=== PATIENT | male | born 1945 | race Caucasian/White ===

== ENCOUNTER → 2019-10-19 | Outpatient (CLI) | payer MEDICARE, SELFPAY ==
--- NOTE | 2019-10-19 12:32 | RAD_ITS ---
STUDY: X-RAY - LUMBAR SPINE REASON FOR EXAM: Male, 74 years old. LOW BACK AND LEFT HIP PAIN TECHNIQUE: 3 view(s) of the lumbar spine were obtained. COMPARISON: None FINDINGS: Normal lumbar lordosis. There is a mild dextroscoliosis of the lumbar spine. There is a normal alignment of the vertebrae in the lateral view. There is multilevel endplate spondylosis of the lumbar vertebrae. There is multi-level degenerative disc disease with multi-level disc space narrowing. There is no demonstrated fracture. There is atherosclerotic calcification of the abdominal aorta without a demonstrated aneurysm. RAD/Lumbar Spine 2 or 3 Views IMPRESSION: Degenerative changes of the spine, as detailed above. Electronically Signed: Joaquin Wade MD at 7:14 EST , Service support ,
--- NOTE | 2019-10-19 12:32 | RAD_ITS ---
STUDY: X-RAY - PELVIS AND LEFT HIP REASON FOR EXAM: Low back and left hip pain. TECHNIQUE: 2 views of the pelvis and hip. COMPARISON: None. FINDINGS: Normal visualized soft tissue structures. There is enthesopathy of the iliac wings bilaterally. Normal bilateral sacroiliac joints and visualized sacrum. Normal bilateral superior and inferior pubic rami. Normal pubic symphysis. Normal bilateral ischial tuberosities. Normal visualized femoral head. There are marginal osteophytes of the acetabulum, subchondral cystic change of the superior acetabulum and moderately severe joint space narrowing of the superior lateral left hip joint. RAD/HIP, UNI W/ Pelvis 2-3 Views IMPRESSION: Left hip arthrosis. Electronically Signed: Nate Newman MD at 14:50 EST Tel , Service support ,
== END | disposition home or self-care (01) ==
LOC: RAD 12:30
PROVIDERS: Referring Provider Anesthesiology Pain Medicine; Visit Provider Anesthesiology Pain Medicine
DX: M54.5 Low back pain (principal); M25.552 Pain in left hip
CPT/HCPCS: 72100; 73502

== ENCOUNTER → 2020-03-21 | Outpatient (CLI) | payer MEDICARE, SELFPAY ==
[2020-02-29 07:35] VITALS: BMI 33.0
[2020-03-21 10:42] VITALS: BMI 33.0
--- NOTE | 2020-03-21 11:12 | CT_ITS ---
STUDY: CT SCAN LOWER EXTREMITY LEFT REASON FOR EXAM: Male, 74 years old. RODLT HIP RADIATION DOSAGE (If Supplied By Facility): CTDIvol = ( 14.06 ) mGy, DLP = ( 810.82 ) mGycm. Individualized dose optimization techniques were used for this CT.? TECHNIQUE: Multiple axial tomographic images of the left hip and left knee were obtained. Coronal and sagittal reconstruction was obtained as well. COMPARISON: Comparison is made with prior radiograph of the left hip dated October 19, 2019. FINDINGS: Moderate degree of osteoarthritis of the left hip joint with subchondral cysts in the acetabular and femoral head components. There is also evidence of a lateral acetabular spur. Imaging of the knee joint is unremarkable. CT/Extremity Lower without Contra IMPRESSION: Moderate degree of osteoarthritis with joint space narrowing and subchondral geodes of the left hip. 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 Electronically Signed: Kwasi Kaiser, at 12:05 EDT , Service support ,
== END | disposition home or self-care (01) ==
LOC: CT 11:12
PROVIDERS: Referring Provider Orthopaedic Surgery; Visit Provider Orthopaedic Surgery
DX: M16.12 Unilateral primary osteoarthritis, left hip (principal)
CPT/HCPCS: 73700

== ENCOUNTER 2020-03-27 05:32 | Day surgery (SDC) | payer MEDICARE, SELFPAY ==
[2020-02-29 07:35] VITALS: BMI 33.0
--- NOTE | 2020-03-15 09:44 | EKG12_ITS ---
Test Reason : PREOP Blood Pressure : / mmHG Vent. Rate : 068 BPM Atrial Rate : 068 BPM P-R Int : 154 ms QRS Dur : 116 ms QT Int : 402 ms P-R-T Axes : 023 003 028 degrees QTc Int : 427 ms Normal sinus rhythm Normal ECG Confirmed by BASHIR STRONG ([id number]), department editor ANUJA MCBRIDE ([id number]) on 03/19/2020 2:11:47 PM Referred By: Jason Alejandro Confirmed By:BASHIR STRONG
[2020-03-15 10:28] LABS: Absolute Lymphocyte Count 1.26 X10^3/uL (0.83-4.51); Absolute Neutrophil Count 5.3 X10^3/uL (2.0-7.7); Basophil# 0.04 X10^3/uL; Basophil% 0.5 % (0-1); Eosinophils% 1.3 % (0-5); Hematocrit 41.1 % (40-54); Hemoglobin 13.8 g/dL (13.0-16.5); Lymphocyte # 1.26 X10^3/ul (4.0); Lymphocyte % 16.8 % (19-41); Mean Corp Hgb Conc 33.6 g/dL (32-36); Mean Corpuscular Hgb 33.7 pg (27.0-32.0); Mean Corpuscular Volume 100.2 fL (80-94); Mean Platelet Vol. 11.5 fl (6.2-12.0); Monocyte# 0.76 X10^3/uL; Monocyte% 10.1 % (0-10); NRBC Flagged by Analyzer 0 % (0-5); Neutrophil % 70.8 % (47-70); Platelet Count 238 K/mm3 (150-450); RBC Distribution Width CV 12.3 % (11.6-14.6); RBC Distribution Width SD 45.7 fl (35.1-43.9); White Blood Count 7.5 K/mm3 (4.4-11.0)
[2020-03-15 10:30] LABS: Prothrombin Time (Protime)PT. 12.6 SECONDS (11.7-14.9)
[2020-03-15 10:31] LABS: Partial Thromboplast Time 29.4 Seconds (24.1-36.2)
[2020-03-15 11:20] LABS: Anion Gap 7 (5-15); BUN 17 mg/dL (7-18); BUN/Creat Ratio 22.9 RATIO (10-20); Calcium,Total 8.7 mg/dL (8.5-10.1); Chloride 108 mmol/L (98-107); Creatinine, Serum 0.74 mg/dL (0.70-1.30); EST Glomerular Filtration Rate 110 mL/min (>60); Est Glom Filt Rate - Afr Amer 133 mL/min (>60); Glucose 109 mg/dL (74-106); Potassium 3.8 mmol/L (3.5-5.1); Sodium Level 142 mmol/L (136-145)
[2020-03-21 10:42] VITALS: BMI 33.0
[2020-03-27] VITALS (16 sets, daily range): BP systolic 105–166; BP diastolic 55–99; PULSE 66–88; RESP 16–18; TEMP 35.9–36.8; O2SAT 90–98; BMI 33.7
[2020-03-27 06:05] LABS: Bedside Glucose 153 mg/dL (70-110)
[2020-03-27] MEDS: Lactated Ringers 1,000 ML 100 ML IV ×2 (06:10→09:15)
[2020-03-27 06:26] LABS: Magnesium 2.3 mg/dL (1.6-2.6)
[2020-03-27] MEDS: Acetaminophen 500 MG Tablet 1000 MG PO ×3 (06:27→21:12)
[2020-03-27] MEDS: Scopolamine 1mg/72hr Patch 1 PATCH TRANSDERM. (06:27)
[2020-03-27] MEDS: Celecoxib 200 MG Capsule 400 MG PO (06:28)
[2020-03-27] MEDS: Gabapentin 600 MG Tablet PO (06:28)
--- NOTE | 2020-03-27 07:30 | HP.PCM_ITS ---
History and Physical Date of Admission: 03/27/20 Intake Intake Visit Reasons: LEFT HIP Is patient in pain?: Yes Allergies No Known Allergies Allergy (Unverified 03/09/20 10:08) [facility] Medical History (Updated 02/22/20 @ 08:56 by Cheryl Morin) Bladder cancer (Acute) Social History (Updated 03/21/20 @ 11:[address] Jason Alejandro DO) Smoking Status: Never smoker HPI LEFT HIP: Details: Parts of this documentation were recorded by a scribe, this documentation accurately reflects the service provided and the decisions made by me, Dr. Jason Alejandro DO 03/21/20 1035. LESTER BOBBY is a 74 year old M here today for left hip. Patient notes that he continues to have left hip pain. He has increased pain with ambulation. He has to limit his activities due to his pain. Patient has surgery scheduled for 03/27/20. He states that he was bit by a dog on his right hand about a month ago. He had no issues until a few weeks later. He was put onto an antibiotic which he has finished taking a few days ago. He has since gained full finger range of motion and his pain is resolved. He states that he did not have deep punctures they were more scratches. ROS Musc Reports joint pain, Reports limited joint movement, Denies numbness, Reports stiffness, Denies tingling Skin/Breast Reports system reviewed and no additional complaints, except as docu Neuro Yes system reviewed and no additional complaints, except as docu, No numbness, No tingling Ortho Exam Right Wrist/Hand Skin/Wound: Yes CDI, No Swelling, No Ecchymosis, Yes nail intact, Yes capillary refill normal WRIST: no signs of active infection. Superficial scratches that were present are completely healed there is no erythema or sign of active infection full finger range of motion nontender along flexor extensor tendons. Left Wrist/Hand Skin/Wound: No Swelling, No Ecchymosis Supplemental Info 10/19/2019 x-ray left hip: Moderate hip arthrosis with joint space narrowing subchondral cysts and spurringp 10/19/2019 x-ray lumbar spine:Dextroscoliosis multilevel degenerative disc disease Assessment & Plan Problems 1. Primary osteoarthritis of left hip M16.12 Plan Spoke with the patient that if he has any redness, increased pain, swelling or signs of infection develop in his hand, he should contact our office. Reviewed the pre-operative plans with the patient. Risks and benefits of the procedure were fully explained, including but not limited to infection, neurovascular injury, continued pain, arthritis, stiffness, need for further surgery, re-injury, DVT, PE, general risks of anesthesia, and loss of limb or life. The patient understands all the risks and does wish to proceed with written consent. Follow up for 2 week post op appt or sooner if pain, swelling, numbness or associated symptoms, or concerns develop. All questions answered. Patient in agreement of plan. Coding Level of Care Code Off vis,est,level 3 Diagnoses Primary osteoarthritis of left hip M16.12 ??Osteoarthritis type: primary I have re-examined the patient. There are no clinical changes since date of exam Procedure Criteria Procedure Type: Elective COVID Risk Discussion: The surgeon/proceduralist and patient have discussed in detail the risk of exposure to and/or potential harm posed by the COVID-19 virus with having a surgery/procedure at this time versus the risk of delaying the surgery/procedure. It is not possible to know either the risk of delaying the surgery or procedure or chance of getting an infection with perfect accuracy, but a joint decision was made between the patient and the surgeon/proceduralist to proceed at this time with the scheduled surgery/procedure as indicated on the consent form.
[2020-03-27] MEDS: dexAMETHasone 10 MG/ML Vial IV (07:50)
--- NOTE | 2020-03-27 09:51 | RAD_ITS ---
STUDY: X-RAY - PELVIS AND LEFT HIP REASON FOR EXAM: Male, 74 years old. POST OP HIP REPLACEMENT TECHNIQUE: 2 views of the pelvis and hip. COMPARISON: Comparison is made with prior study dated October 19, 2019. FINDINGS: The patient is status post left hip replacement. There is good alignment. Postoperative soft tissue changes. RAD/Hip Min 2 Views (Portable) IMPRESSION: Status post left hip replacement. There is good alignment. Electronically Signed: Kwasi Kaiser, at 13:06 EDT , Service support ,
--- NOTE | 2020-03-27 09:55 | PCM.OPRPT ---
Report of Operation Date of Procedure: 03/27/20 Description of Surgical Findings:: Preoperative diagnosis: Left hip DJD Postoperative diagnosis: Same Procedure: CT-guided Makoplasty assisted left total hip arthroplasty Implants: Tanner Accolade II stem size 6, 127 degree neck angle 0 neck length 56 mm Trident II acetabular shell with 30 and mm cancellous screw MDM head Anesthesia: General EBL: 175 cc Complications: None Condition: Stable to PACU Indication for procedure: This is a 74-year-old male who has had long-standing arthrosis of the hip who has failed conservative treatment and wished to undergo total hip arthroplasty. He does have lumbar arthrosis with a very stiff lumbar spine therefore elected to proceed with MDM for stability ,we did discuss operative versus nonoperative intervention including risks of bleeding, infection , nerve artery tissue damage, need for further surgery, fracture, leg length discrepancy dislocation blood clot and need for postoperative physical therapy and postoperative expectations. An informed consent was signed. Procedure: Patient was met in the preoperative holding area once again the operative extremity was identified by both patient and physician and was marked. Patient was met by anesthesia general anesthesia was started. patient was then positioned in the lateral decubitus position on a well-padded pegboard with an axillary roll. All bony prominences were checked and padded. The patient was prepped and draped in the usual sterile fashion. A timeout was called to ensure the proper patient procedure and extremity were being contemplated. Anatomic landmarks were palpated and marked for a standard posterior lateral approach. Prior to this the ASIS was palpated and 3 fingerbreadths proximal to this 3 pins were placed at a 45 degree angle into the iliac crest with good purchase, stab incisions were made with a 15 blade into the skin prior to placement. The Makoplasty array was then secured. A 10 blade scalpel was used to make a posterior incision through the skin and subcutaneous tissue. retractors were used and electrocautery was used to maintain meticulous hemostasis and dissect full-thickness flaps until the gluteal fascia was reached. The gluteal fascia was incised in line with the gluteal fibers. The bursal tissue was then freed from the underside and a Charnley retractor was placed. The femoral trochanteric checkpoint was placed and leg length was assessed using the trochanteric checkpoint and an EKG lead that was placed on the knee prior to prepping the leg .the fat pad was then elevated off of the external rotators with electrocautery and the external rotators were dissected off of the greater trochanter including the piriformis and were tagged with #1 Ethibond for later repair. The joint capsule opened with posterior trapdoor technique. The hip was surgically dislocated. The measurement on the preoperative CT from the top of the lesser trochanter to the femoral neck cut was marked Hohmann was placed around the lesser trochanter. A neck cutting guide was used to neil the neck with a Bovie and an oscillating saw was used complete the femoral neck cut. The femoral head was then removed and sized. We then turned our attention to the acetabulum. A Bovie was used to make a perforation in the anterior joint capsule and a Pace retractor was placed this was repeated in the 6 o'clock position and a wide christy was placed there. With a long handled knife the labral and pulvinar tissue were removed. We then registered the acetabulum with the pointing array and confirmed our landmarks. Also placed a checkpoint in the superior acetabulum and a Steinmann pin was also placed in this location to aid in retraction. Once the socket was thoroughly prepared and labral tissue pulmonary was removed we single reamed with the robotic arm. We then used the robotic arm to position the acetabular implant and impacted it into place under robotic guidance. We then proceeded to place a posterior superior screw by drilling first measuring and inserting the screw, we did place a second screw in the posterior superior quadrant as well. We then inserted a trial liner. And turned our attention back to the femur at this point a femoral elevator was used. As well as a pointed wide Hohmann around the lesser trochanter and a Hohmann to help retract the gluteus medius. A box chisel was used to remove excess lateral neck followed by a canal finder and a lateralizing reamer. This was followed by sequential broaches. Attention was made of the version within the canal based on preoperative templating. Once the final broach was seated we then trialed reduced the hip it was determined that a 127 degree neck angle with a 0 neck length was the appropriate size. We then checked stability with shuck testing as well as flexion and internal rotation. then proceeded with hip extension and checked leg lengths at the knees and heels as well as with the trochanteric checkpoint and knee EKG lead. At this point trials were removed. A liner was inserted to the cup. The femoral stem was inserted. We re-trialed and then proceeded to impact the femoral head onto the Crispin taper. We then surgically reduce the hip check stability again and leg lengths and were satisfied. Betadine rinse was allowed to sit for 5 minutes while everyone changed their gloves. Thorough irrigation was performed. Followed by closure of the external rotators with #2 FiberWire followed by closure of gluteal fascia with #1 Ethibond. 0 Vicryl fat stitches and 2-0 Vicryl subcutaneous stitches and librado in the skin. A pulls were placed in the pin sites over the iliac crest with Xeroform 4 x 4 and OpSite. dressing was applied to incisional area with Mepilex Ag and an abduction pillow was placed. Patient tolerated the procedure well there was no intraoperative complications all counts were correct and the patient was brought back to the PACU in stable condition
[2020-03-27] MEDS: Cefazolin 1 GM/50 ML BAG IV ×2 (12:09→20:51)
[2020-03-27] MEDS: Lactated Ringers 1,000 ML 125 ML IV ×2 (15:29→23:58)
[2020-03-27] MEDS: Senna/Docusate Sodium 1 Tablet 2 TABLET PO (21:11)
[2020-03-28 02:50] VITALS: BP 114/54; PULSE 80; RESP 16; TEMP 36.5; O2SAT 95
[2020-03-28] MEDS: Cefazolin 1 GM/50 ML BAG IV (03:26)
[2020-03-28 05:29] LABS: Hematocrit 29.3 % (40-54); Hemoglobin 9.9 g/dL (13.0-16.5); Mean Corp Hgb Conc 33.8 g/dL (32-36); Mean Corpuscular Hgb 33.9 pg (27.0-32.0); Mean Corpuscular Volume 100.3 fL (80-94); Mean Platelet Vol. 11.4 fl (6.2-12.0); Platelet Count 204 K/mm3 (150-450); RBC Distribution Width CV 12.3 % (11.6-14.6); RBC Distribution Width SD 44.8 fl (35.1-43.9); Red Blood Count 2.92 M/mm3 (4.6-6.2); White Blood Count 14.6 K/mm3 (4.4-11.0)
[2020-03-28 05:43] LABS: Anion Gap 4 (5-15); BUN 15 mg/dL (7-18); BUN/Creat Ratio 19.7 RATIO (10-20); Calcium,Total 7.7 mg/dL (8.5-10.1); Chloride 106 mmol/L (98-107); Creatinine, Serum 0.76 mg/dL (0.70-1.30); EST Glomerular Filtration Rate 107 mL/min (>60); Est Glom Filt Rate - Afr Amer 129 mL/min (>60); Estimated Creatinine Clearance 66.77 ml/min; Glucose 180 mg/dL (74-106); Potassium 3.8 mmol/L (3.5-5.1); Sodium Level 138 mmol/L (136-145)
[2020-03-28] MEDS: Acetaminophen 500 MG Tablet 1000 MG PO (06:43)
--- NOTE | 2020-03-28 07:26 | PCM.DC.ORTHO ---
Discharge Diet: No Restrictions Weight Bearing Status: Weight bearing as tolerated Call your doctor if you observe: Shortness of breath, Chest pain Suture Line Care: Avoid Pulling/Pushing Additional Instructions: Begin daily showering warm water antibacterial soap postop day #3( 72hrs Post-operatively) and then daily. Leave the dressing on for 72 hours postoperatively then may remove prior to first shower and change dressing daily after this until no drainage for 2 consecutive days then may leave open to air. Follow hip precautions that were reviewed in hospital. Wear compression stockings, may remove at night. Start physical therapy as directed in hospital. Call Dr. Alejandro's office with any concerns. Allergies/Adverse Reactions: Allergies No Known Allergies Allergy (Unverified 03/27/20 05:41) Medications to take at Discharge aspirin 81 mg tablet,delayed release 81 mg PO DAILY 02/29/20 Ascorbic Acid [Vitamin C] 500 mg PO DAILY 03/09/20 Loratadine [Claritin] 10 mg PO DAILY 03/09/20 Multivitamin with Minerals [Multiple Vitamin] 1 ea PO DAILY 03/09/20 Vitamin B Complex 1 ea PO DAILY 03/09/20 Acetaminophen [Tylenol] 1,000 mg PO Q6H #100 tab 03/28/20 Apixaban [Eliquis] 2.5 mg PO BID #42 tab 03/28/20 Oxycodone [Oxyir] 5 - 10 mg PO Q4H PRN PRN #60 tablet 03/28/20 The following prescriptions were given: Apixaban [Eliquis] 2.5 mg PO BID #42 tab Transmission Status: Pending to [facility] Oxycodone [Oxyir] 5 - 10 mg PO Q4H PRN PRN #60 tablet PRN Reason: Pain Score 6-10/10 Transmission Status: Sent to [facility] Acetaminophen [Tylenol] 1,000 mg PO Q6H #100 tab Transmission Status: Pending to [facility] Physician: [facility] [Primary Care Provider] - Test Results: Test results from this visit will be discussed in further detail at your follow-up appointment, if applicable. Please Follow Up With: Jason Alejandro DO - 2 weeks
--- NOTE | 2020-03-28 07:27 | PCM.DC.SUM ---
Discharge Date and Diagnosis Date of Admission: 03/27/20 Date of Discharge: 03/28/20 Hospital Course and Treatment Summary of Care Provided: The patient is a 74 year old M underwent [left] total hip arthroplasty on date of admission without any intraoperative complications. Patient has failed can conservative treatment wished to undergo the elective procedure. Patient underwent the procedure without any intraoperative complications, did receive pre-and postoperative antibiotics which were discontinued within 23 hours postoperatively. Patient did receive trans-examined acid and vital signs remained stable postoperatively as well as hemoglobin and hematocrit and did not require any blood transfusion. Seen by physical therapy, did progress with ambulation and was started on both mechanical chemical DVT prophylaxis in the form of SCDs OTIS hose and[ Eliquis 2.5 mg twice daily] for which patient will continue for 3 weeks post hospital discharge. To be set up with [out patient physical therapy] and will follow-up in the office in 2 weeks for staple removal wound check . Patient was originally planned for same-day surgery however family and patient did have concerns about care at home first postoperative night and due to his age and some confusion vitals appropriate to observe 23 hours patient is doing very well and is ready for discharge after physical therapy. due to the amount of back stiffness in the lumbar spine from arthrosis and degenerative disc disease it was deemed appropriate to use MDM for this particular case - Physical Exam Vitals/I&O's: Vital Signs Temp Pulse Resp BP Pulse Ox 97.7 F L 80 16 114/54 L 95 03/28/20 02:50 03/28/20 02:50 03/28/20 02:50 03/28/20 02:50 03/28/20 02:50 Oxygen Flow Rate (L/min) 2 Oxygen Delivery Method Room Air Weight: 228 lb 2.855 oz Body Mass Index (BMI) 33.7 Intake and Output for Last 24 Hours 03/26/20 03/27/20 03/28/20 23:59 23:59 23:59 Intake Total 3978.91 / 4278.91 1577.08 / 1577.08 Output Total 700 / 700 Balance 3978.91 / 4028.91 877.08 / 877.08 General: Alert, Oriented x3, Cooperative, No apparent distress Extremities: - - Dressing clean dry and intact compartments soft neurovascular intact left lower extremity EHL tibialis anterior gastrocsoleus intact sensation to light touch throughout palpable pedal pulses Laboratory Results 03/28/20 05:06: WBC 14.6 H, RBC 2.92 L, Hgb 9.9 L, Hct 29.3 L, MCV 100.3 H, MCH 33.9 H, MCHC 33.8, RDW Std Deviation 44.8 H, RDW Coeff of Samantha 12.3, Plt Count 204, MPV 11.4 03/28/20 05:06: Sodium 138, Potassium 3.8, Chloride 106, Carbon Dioxide 28.0, Anion Gap 4 L, BUN 15, Creatinine 0.76, Estim Creat Clear Calc 66.77, Est GFR (MDRD) Af Amer 129, Est GFR (MDRD) Non-Af 107, BUN/Creatinine Ratio 19.7, Glucose 180 H, Calcium 7.7 L Current Medications Acetaminophen (Tylenol) 1,000 mg PO Q8 [facility] Last Admin: 03/28/20 06:43 Dose: 1,000 mg Documented by: Apixaban (Eliquis) 2.5 mg PO BID [facility] Hydromorphone HCl (Dilaudid Inj) 0.5 mg IV Q2H PRN PRN PRN Reason: Pain Score 6-10/10 Sodium Chloride () 250 mls @ 15 mls/hr IV .[id number] PRN PRN Reason: Saline Flush Sodium Chloride () 250 mls @ 15 mls/hr IV .[id number] PRN PRN Reason: Additional IVPB Infusion Insulin Human Lispro (Humalog Kwikpen (Bk)) 1 - 6 unit SC Q4H PRN PRN; Protocol PRN Reason: BG>/= 180, SEE PROTOCOL Ketorolac Tromethamine (Toradol (Bkc)) 15 mg IV Q6H PRN PRN PRN Reason: Pain Score 1-5/10 Stop: 03/29/20 09:52 Ondansetron HCl (Zofran) 4 mg IV Q6H PRN PRN PRN Reason: NAUSEA Oxycodone HCl (Oxyir) 5 - 10 mg PO Q4H PRN PRN PRN Reason: Pain Score 4-10/10 Senna/Docusate Sodium (Senokot-S, Sowmya-Colace) 2 tablet PO BID [facility] Last Admin: 03/27/20 21:11 Dose: 2 tablet Documented by: Sodium Chloride () 10 - 40 ml IV UD PRN PRN Reason: SALINE FLUSH Discharge Diet: No Restrictions Weight Bearing Status: Weight bearing as tolerated Call your doctor if you observe: Shortness of breath, Chest pain Suture Line Care: Avoid Pulling/Pushing Home Medications: Medications to take at Discharge aspirin 81 mg tablet,delayed release 81 mg PO DAILY 02/29/20 Ascorbic Acid [Vitamin C] 500 mg PO DAILY 03/09/20 Loratadine [Claritin] 10 mg PO DAILY 03/09/20 Multivitamin with Minerals [Multiple Vitamin] 1 ea PO DAILY 03/09/20 Vitamin B Complex 1 ea PO DAILY 03/09/20 Acetaminophen [Tylenol] 1,000 mg PO Q6H #100 tab 03/28/20 Apixaban [Eliquis] 2.5 mg PO BID #42 tab 03/28/20 Oxycodone [Oxyir] 5 - 10 mg PO Q4H PRN PRN #60 tablet 03/28/20 Following Prescrptions Were Given to Patient: Apixaban [Eliquis] 2.5 mg PO BID #42 tab Transmission Status: Pending to [facility] Oxycodone [Oxyir] 5 - 10 mg PO Q4H PRN PRN #60 tablet PRN Reason: Pain Score 6-10/10 Transmission Status: Sent to [facility] Acetaminophen [Tylenol] 1,000 mg PO Q6H #100 tab Transmission Status: Pending to [facility] Phys[facility] [Primary [facility] Provider] - Please Follow Up With: Jason Alejandro DO - 2 weeks Additional Instructions: Begin daily showering warm water antibacterial soap postop day #3( 72hrs Post-operatively) and then daily. Leave the dressing on for 72 hours postoperatively then may remove prior to first shower and change dressing daily after this until no drainage for 2 consecutive days then may leave open to air. Follow hip precautions that were reviewed in hospital. Wear compression stockings, may remove at night. Start physical therapy as directed in hospital. Call Dr. Alejandro's office with any concerns. Medical Necessity - Tobacco Use Smoking Status: Never smoker Tobacco Use: Non-smoker Meaningful Use Info Meaningful Use Diagnoses (Choose all that apply): None applicable
[2020-03-28] MEDS: Senna/Docusate Sodium 1 Tablet 2 TABLET PO (08:04)
[2020-03-28] MEDS: APIXABAN 2.5 MG TABLET PO (08:04)
[2020-03-28 08:05] VITALS: BP 119/58; PULSE 75; RESP 18; TEMP 36.6; O2SAT 98
--- NOTE | 2020-03-28 10:35 | CASEMGMT ---
AKILAH REAL Face to Face with patient for initial transition planning/care coordination assessment. RN ADDIE introduced self and role at [facility]. Patient sitting in chair, alert and oriented. Patient willing to participate in assessment and is able to answer all questions appropriately. Care providers, pharmacy, and demographics verified. Patient wishes to discharge home and is setup with [facility] for outpatient therapy. Patient states he has no further needs or concerns at this time. CM to follow for discharge planning needs that may arise. PCP: [facility] Specialists: Flavia Watkins Pharmacy: [facility] Insurance: [employer] Prescription Benefit: yes Living Will/HPOA: none LNOK: Living Arrangements: Patient lives with in a 1 story home with 3 steps and railing. Patient states he was independent prior to surgery. Transportation: DME/HHC: Patient states he has a shower chair, walker, and cpap at home. Patient is scheduled for outpatient therapy at [facility] starting tomorrow. Disposition Plan: Patient to discharge home with outpatient therapy, family support, and follow-up plans in place. Savita ZHANG, RN, CM
--- NOTE | 2020-03-28 11:32 | PHA.DC.MC ---
Pharmacy Service has performed discharge medication reconciliation and counseling for this patient. 1. ACETAMINOPHEN 1000MG PO Q6H 2. APIXABAN 2.5MG PO BID X 21 DAYS 3. OXYCODONE 5-10MG PO Q4H PRN PAIN -06/23 The patient's discharge medication list was reviewed for discrepancies and discrepancies were resolved. Home Medications aspirin 81 mg tablet,delayed release 81 mg PO DAILY 02/29/20 Ascorbic Acid [Vitamin C] 500 mg PO DAILY 03/09/20 Loratadine [Claritin] 10 mg PO DAILY 03/09/20 Multivitamin with Minerals [Multiple Vitamin] 1 ea PO DAILY 03/09/20 Vitamin B Complex 1 ea PO DAILY 03/09/20 Acetaminophen [Tylenol] 1,000 mg PO Q6H #100 tab 03/28/20 Apixaban [Eliquis] 2.5 mg PO BID #42 tab 03/28/20 Oxycodone [Oxyir] 5 - 10 mg PO Q4H PRN PRN #60 tab 03/28/20 The patient was counseled on the following discharge medications and changes in medications for homegoing were reviewed. The Reason for Use, instructions for use, and potential side effects were reviewed for all new medications. The patient's questions regarding all of their medications were answered. The patient was able to verbally demonstrate an understanding of their discharge medications.
[2020-03-28 13:05] VITALS: BP 148/58; PULSE 81; RESP 18; TEMP 36.6; O2SAT 99
== END 2020-03-28 13:13 | disposition home or self-care (01) ==
LOC: SDC 05:33 → AC 05:33 → MS3 11:41
PROVIDERS: Anesthesiology; Referring Provider Orthopaedic Surgery; Visit Provider Orthopaedic Surgery
PROC: 8E0Y0CZ Robotic Assisted Procedure of Lower Extremity, Open Approach (ICD-10-PCS; CPT 27130; principal; 2020-03-27 07:00)
DX: M16.12 Unilateral primary osteoarthritis, left hip (principal); C67.9 Malignant neoplasm of bladder, unspecified; G47.30 Sleep apnea, unspecified; Z11.59 Encounter for screening for other viral diseases; Z79.1 Long term (current) use of non-steroidal anti-inflammatories (NSAID); Z79.82 Long term (current) use of aspirin
CPT/HCPCS: 01214; 27130; 36415; 73502; 80048; 82962; 83735; 85025; 85027; 85610; 85730; 86850; 86900; 86901; 87077; 87081; 87635; 93005; 97110; 97116; 97162; 97166; 97530; 99251; C1713; C1776; G2023; J7040; J7120; G0463; J2405; U0003

== ENCOUNTER → 2020-05-07 15:21 | Outpatient (CLI) | payer MEDICARE, OTHER, SELFPAY ==
[2020-05-07 08:03] VITALS: BMI 33.7
--- NOTE | 2020-05-07 15:23 | RAD_ITS ---
STUDY: X-RAY - PELVIS AND LEFT HIP REASON FOR EXAM: Male, 74 years old. PAIN TECHNIQUE: 3 views of the pelvis and hip. COMPARISON: Comparison is made with prior study dated 03/27/2020. FINDINGS: There is a non-specific bowel gas pattern. Normal visualized soft tissue structures. The patient is status post left total hip replacement. There is good alignment. RAD/HIP, UNI W/ Pelvis 2-3 Views IMPRESSION: Status post left total hip replacement. There is good alignment. Electronically Signed: Kwasi Kaiser, at 15:01 EDT , Service support ,
== END ==
PROVIDERS: Referring Provider Orthopaedic Surgery; Visit Provider Orthopaedic Surgery
DX: Z96.642 Presence of left artificial hip joint (principal); Z47.1 Aftercare following joint replacement surgery
CPT/HCPCS: 73502; 97110

== ENCOUNTER 2020-05-14 10:30 | Outpatient (RCR) | payer MEDICARE, SELFPAY ==
[2020-02-29 07:35] VITALS: BMI 33.0
[2020-03-27 13:17] VITALS: BMI 33.7
--- NOTE | 2020-03-29 12:01 | HP.PTEVAL ---
Patient's Visit Information LESTER BOBBY is a 74 year old M referred to Physical Therapy by Dr. Jason Alejandro DO with a diagnosis of Left THR Posterior Approach. Date of Evaluation: 03/29/20 Physical Therapist: Tessy Christie DPT - Visit Plan Frequency: 3x /Week Duration: 4 Weeks Plan: Posterior THR 03/27/2020. HEP Given: Quad set, glut set, seated marching, postural education in sitting, heel slides, weight shifting - Subjective 03/27/2020 THR on the left side by Dr. Paige with aaron with posterior approach- stayed overnight in the hospital and went home yesterday afternoon. Went home with his and slept in the lift chair. He lives in a ranch house with 2 steps to enter with a railing. Pain is located in the buttock area- no radiating pain. Reports pain is dull and achy. Has had pain in this hip a long time and finally had it replaced. Worst: 9/10 Best: 0/10 mostly just a numb feeling. Can't abd or add his leg and thats what really hurts him. Sleep: plans to sleep in the chair until his leg starts working better so he can get up quick to use the restroom- woke him up on/off throughout the night. Cane (community distances) prior to surgery but is now using a FWW. PMHx/med: no changes since hospital. He likes to [place] and fish- gardening. - Objective Posture: Fh, RS- can correct but does not maintain. Gait: antalgic- using FWW walker Decreased stance on the left LE with poor heel/toe pattern. Observation: sitting patient leans to the right to remove weight from the left Hip. Incision: no s/s of infection. Palpation: tender along incision, greater troch and down the ITBand and Quads to the knee. HR/TR: able reports discomfort with TR in the quad. SLS: weight shift but unable to SLS and reports pain. Sensation: WNL to gross touch bilateral;y. ROM: hip: flexion: 70 degrees, Extn: neutral, Add: neutral, Abd: 40 degrees, IR/ER: neutral. Knee: flexion: 80 degrees extn: WNl Ankle: WNL. Strength: Core: fair minus, Hip: unable to SLR without mod A, quad set visible and strong add/abd: neutral 4+/5, Knee: 4+/5, Ankle: 5/5. Flex: HS: moderate Gastroc: moderate. Stairs: asc/desc 8 non recip with 2 HR and SBA - Goals Goal 1:: Patient will be I with HEP and progression Goal Time Frame: 4-6 Weeks Goal 2:: Patient will ambulate >300 feet with a normalized gait pattern Goal Time Frame: 4-6 Weeks Goal 3:: Patient will SLR with no lag Goal Time Frame: 4-6 Weeks Goal 4:: Patient will report no pain with ADL's for 1 week Goal Time Frame: 4-6 Weeks - Rehabilitation Potential Physical Therapy Diagnosis: Patient presents s/p THR 03/27/2020- he has decreased ROM, strength, flex and muscular endurance leading to abnormal gait and decreased participation in ADL's Rehabilitation Potential: Good - Anticipated Interventions Patient/Client Instruction: Educate patient on: Benefits of Fitness Program Therapeutic Exercise to Include: Strength training, Endurance training, Balance training, Coordination, Agility training, Body mechanics, Postural training, Flexibilty training, Gait and locomotor training, Neuromotor development, Passive ROM, Active ROM, Dynamic Lumbar Stabilization, Scapular Strength/Stabilization Comment: Post Hip Precautions For the Purpose of:: To improve muscle performance and motor function Functional Training to Include: ADL Training, Gait training For the Purpose of:: To improve ability to perform ADL's TENS: Yes Cryotherapy (ice pack, ice massage): Yes Thermo therapy (hot pack): Yes Ultrasound (thermal/non thermal): No For the Purpose of:: To decrease pain Thank you for the opportunity to evaluate your patient. For Medicare and Medicare HMO plans, please review the plan of care and approve it. It will need to be FAXED BACK to us at [phone] for Medicare purposes. For Medicare only, by signing this I certify the plan of care. Please let me know if there are questions or concerns regarding this plan of care. Physician Signature: Date:
--- NOTE | 2020-05-02 13:41 | HP.PTREVAL_ITS ---
Dr. Jason Alejandro, DO, It has been my pleasure to treat LESTER BOBBY over the last 10 visits for Left THR Posterior Approach. Please see the progress note below for an update on the physical therapy plan of care! Subjective: THIS PATIENT PRESENTS TO PT REPORTING MILD LEFT HIP PAIN 1/10 AND 90% IMPROVEMENT OVER-ALL. HE REPORTS HE STILL CAN'T BEND DOWN FAR ENOUGH TO REACH HIS LEFT FOOT BUT HER CAN REACH HIS RIGHT ONE. PATIENT REPORTS HE ACCIDENTALLY GOT IN THE CAR TODAY BEFORE HE PUT THE SEAT BACK AFTER HIS WAS IN IT. Objective/Function: PATIENT WAS SEEN TODAY FOR RE-ASSESSMENT OF PROGRESS TOWARD THE SET PT GOALS AND THE NEED FOR FURTHER PHYSICAL THERAPY VS READINESS FOR DISCHARGE. PATIENT IS MAKING GOOD PROGRESS TOWARD ALL PT GOALS AND IS A GOOD CANDIDATE TO CONTINUE PT. UPON EXAM TODAY: THIS PATIENT AMBULATES INDEP'LY INTO PT WITHOUT ANY ASSISTIVE DEVICES AND A MILD LIMP ON THE LLE. HE IS UNABLE TO TRANSFER FROM SIT TO STAND WITHOUT UE ASSIST. HE IS ABLE TO INDEP'LY ABLE TO TRANSFER SIT TO SUPINE AND REVERSE WITHOUT UE ASSIST OR ASSIST FROM NON- OPERATIVE LEG TO GET SURGICAL LEG ON AND OFF TABLE. HE IS NOW ABLE TO SLS ON THE SURGICAL LEG X >10 SEC WITHOUT UE ASSIST. ROM: hip: flexion: 84 degrees, Abd: 48 degrees. Knee: flexion: 120 degrees Ankle: WNL. Hip: Patient is able to perform indep SLR now. add/abd: neutral 4+/5, Knee: 4+/5, Ankle: 5/5. Plan Plan: Cont PT per POC. Focus on Written Indep HEP. Posterior THR 03/27/2020 Goals Goal 1:: Patient will be I with HEP and progression Goal Time Frame: 4-6 Weeks Goal Progress: Progressing Goal 2:: Patient will ambulate >300 feet with a normalized gait pattern Goal Time Frame: 4-6 Weeks Goal Progress: Progressing Goal 3:: Patient will SLR with no lag Goal Time Frame: 4-6 Weeks Goal Progress: Progressing Goal 4:: Patient will report no pain with ADL's for 1 week Goal Time Frame: 4-6 Weeks Goal Progress: Progressing Anticipated Interventions Patient/Client Instruction: Educate patient on: Benefits of Fitness Program Therapeutic Exercise to Include: Strength training, Endurance training, Balance training, Coordination, Agility training, Body mechanics, Postural training, Flexibilty training, Gait and locomotor training, Neuromotor development, Passive ROM, Active ROM, Dynamic Lumbar Stabilization, Scapular Stren gth/Stabilization Comment: Post Hip Precautions For the Purpose of:: To improve muscle performance and motor function Functional Training to Include: ADL Training, Gait training For the Purpose of:: To improve ability to perform ADL's TENS: Yes Cryotherapy (ice pack, ice massage): Yes Thermo therapy (hot pack): Yes Ultrasound (thermal/non thermal): No For the Purpose of:: To decrease pain Please do not hesitate to contact me at [phone] by phone or if you have questions or concerns regarding this new plan of care! Sincerely, Leigh Haq, PT, Cert MDT
--- NOTE | 2020-05-14 10:55 | HP.PTDCSUM ---
It has been my pleasure to treat LESTER BOBBY referred by Dr. Jason Alejandro DO, with the diagnosis of Left THR Posterior Approach for a total of 15 visit(s). Discharge Date: Please see the following information for a summary of their discharge status. Subjective: Patient reports that his hip is fair- He is able to get up/down off the floor from his knee but he is still unable to reach down and put on his shoes and socks. He has changed to Aleve every 12 hours and he is no longer having pain unless he is stretching down to get to his right foot- Goes back to the MD in a few weeks. L hip Pain Intensity (Out of 10): 1 % Improvement: 80 Objective/Function: Posture: fair throughout session. Gait: slightly antalgic- decreased stance on the left LE. HR/TR: UE A no pain and full ROM bilaterally. SLS: 4 sec then LOB. Sit to Stand: pt kickes left LE out then uses UE- is able to peform without UE with given verbal cues. Strength: Ankle: 5/5 Knee: 5/5, Hip: 4+/5 with manual muscle testing in sitting SLR: no lag. Flex: HS: moderate, Gastroc: moderate Goal 1:: Patient will be I with HEP and progression Goal Progress: Progressing Goal 2:: Patient will ambulate >300 feet with a normalized gait pattern Goal Progress: Progressing Goal 3:: Patient will SLR with no lag Goal Progress: Goal Met Goal 4:: Patient will report no pain with ADL's for 1 week Goal Progress: Progressing Plan: Discharge to HEP per pt request- encouraged him to continue strength and stretching exercises. If there are questions or concerns regarding this patient's physical therapy, please feel free to call me at [phone]. Thank you for the referral of this patient. Sincerely, Tessy Christie DPT
== END 2020-05-14 19:00 | disposition home or self-care (01) ==
LOC: PT 10:30
PROVIDERS: Referring Provider Orthopaedic Surgery; Visit Provider Orthopaedic Surgery
DX: Z47.1 Aftercare following joint replacement surgery (principal); Z96.642 Presence of left artificial hip joint
CPT/HCPCS: 97110; 97161; 97164

== ENCOUNTER → 2020-06-25 | Outpatient (CLI) | payer MEDICARE, SELFPAY ==
[2020-06-18 07:45] VITALS: BMI 33.7
--- NOTE | 2020-06-25 14:23 | VDLE_ITS ---
Reason For Study: Pain Procedure LEFT This is a venous duplex using B-mode, color GSV is normal. flow and spectral Doppler. CFV is compressible, spontaneous, phasic, Exam performed in department. competent, and demonstrates normal A preliminary report was called and/or faxed augmentation. to [facility]. FV is compressible, spontaneous, phasic, competent and demonstrates normal augmentation. POP V is compressible, spontaneous, phasic, competent and demonstrates normal augmentation. T/P Trunk is compressible. PTV is compressible. LT PerV is compressible. Interpretation Summary Deep veins of the left lower extremity are patent and compressible segmentally. There is no evidence of left lower extremity deep vein thrombosis. Valvular competence appears intact within the proximal deep venous system on the left . The left great saphenous vein appears patent and compressible segmentally. Ordering Physician: Wilfred Billingsley Referring Physician: [facility] Performed By: Savita Tobias RVT
== END | disposition home or self-care (01) ==
LOC: CVS 14:20
PROVIDERS: Referring Provider Nurse Practitioner Family; Visit Provider Nurse Practitioner Family
DX: M79.662 Pain in left lower leg (principal)
CPT/HCPCS: 93971

== ENCOUNTER 2020-11-25 15:46 | Emergency (ER) | payer MEDICARE, OTHER, SELFPAY ==
[2020-06-18 07:45] VITALS: BMI 33.7
[2020-11-25] VITALS (7 sets, daily range): BP systolic 151–178; BP diastolic 70–80; PULSE 82–96; RESP 16–18; TEMP 36.2–36.6; O2SAT 95–98; BMI 37.2
--- NOTE | 2020-11-25 16:04 | CT_ITS ---
STUDY: CT PELVIS WITH CONTRAST REASON FOR EXAM: Male, 75 years old. post op infection -- Inguinal hernia repair 11/20. Scrotal pain/swelling RADIATION DOSAGE (If Supplied By Facility): CTDIvol = ( 37.99 ) mGy, DLP = ( 1772.38 ) mGycm TECHNIQUE: Transaxial imaging of the pelvis was performed without oral contrast. IV 100mL Isovue-300 was administered intravenously. Individualized dose optimization techniques were used for this CT. COMPARISON: None. FINDINGS: Normal urinary bladder. Cystic structures of the central bilateral kidneys compatible with parapelvic cysts. Normal visualized small intestine. Normal visualized colon. There is no pelvic fluid. There is no pelvic lymphadenopathy or mass lesion. There is diffuse atherosclerotic calcification of the pelvic arteries. There is soft tissue induration of the left groin extending into the left inguinal ring and lower abdomen/retroperitoneum (images 31-70 series 2). Diffuse soft tissue swelling and edema throughout the scrotum. Left inguinal hernia extends into the scrotum (image 59 series 602) with associated edema, fluid and locules of air. There are small locules of air of the lateral abdominal wall compatible with recent surgery. Left hip replacement causes moderate spray artifact. Degenerative changes of the lumbar spine. CT/Pelvis WITH IV Contrast IMPRESSION: Left inguinal hernia extends into the scrotum. Soft tissue stranding/edema suggesting cellulitis versus postoperative edema. Scattered locules of air compatible with surgery. Electronically Signed: Girma Edmond MD (Bro[facility]) at 17:24 EDT , Service support ,
--- NOTE | 2020-11-25 16:06 | ED.DCSUM_ITS ---
History of Present Illness Chief Complaint: Male Pain/Injury Informant: Patient Onset: Days Context: Gradual Onset Current Severity: Moderate Maximum Severity: Moderate Narrative: Patient had a left inguinal hernia repair on November 20 at the [facility]. Patient was discharged home that same day. Patient reportedly has been wearing his supportive underwear. He has been using ice appropriately. Patient complains of pain and swelling to the scrotum that has been gradual in onset since the time of surgery. He states he is urinating okay and bowel movements are fair. He denies fever or chills. He is scheduled to see his surgeon again in 3 days. Past Medical History - Allergies and Home Meds Allergies/Adverse Reactions: Allergies No Known Allergies Allergy (Verified 11/25/20 15:50) Primary Care Physician: Courtney Hilton MD [STAFF PHYSICIAN] - Past Medical History: - - Back pain Lives: With Family Smoking Status: Never smoker Review of Systems General: Denies: Chills, Fever Eyes: Denies: Visual changes - bilaterally ENT: Denies: Bilateral ear pain Cardiovascular: Denies: Chest pain, Palpitations Respiratory: Denies: Dyspnea, Cough Gastrointestinal: Denies: Abdominal pain, Nausea, Vomiting, Diarrhea Genitourinary: Reports: - - Scrotal pain and swelling. Denies: Dysuria Musculoskeletal: Denies: Extremity Pain Skin: Denies: Rash Neurological: Denies: Headache Hematologic: Denies: Easy bruising, Easy bleeding Allergy: Denies: Uticaria Physical Exam Vital Signs/Narrative: Vital Signs Temp Pulse Resp BP Pulse Ox 11/25/20 15:50 97.2 F L 96 16 178/70 H 96 11/25/20 15:47 97.2 F L 96 16 178/70 H 96 Inital Vital Signs reviewed: Yes General: Well nourished, Well developed Head: Normocephalic Neck: Supple Cardiovascular: Regular rate, Regular rhythm Respiratory: No distress, CTA bilaterally Abdomen: Soft, Nontender : - - Healing surgical incision in the left groin that is clean and intact. Significant scrotal edema is noted. Skin is slightly indurated and mildly erythematous. No significant focal tenderness over the scrotum. Neurological: Alert, Oriented x3 Psychological: Normal affect Diagnostic/Tx/Re-eval Impressions Pelvis CT 11/25/20 16:04 IMPRESSION: Left inguinal hernia extends into the scrotum. Soft tissue stranding/edema suggesting cellulitis versus postoperative edema. Scattered locules of air compatible with surgery. Electronically Signed: Girma Edmond MD ([place]) at 17:24 EDT , Service support , 11/25/20 16:04 CT Pel [Pelvis WITH IV Contrast] [CT] Stat Laboratory Results 11/25/20 11/25/20 16:12 16:12 WBC 9.2 RBC 3.57 L Hgb 11.1 L Hct 33.8 L MCV 94.7 H MCH 31.1 MCHC 32.8 RDW Std Deviation 50.7 H RDW Coeff of Samantha 14.6 Plt Count 240 MPV 10.6 Immature Gran % (Auto) 0.900 Neut % (Auto) 81.7 H Lymph % (Auto) 9.4 L [place] % (Auto) 6.2 Eos % (Auto) 1.5 Baso % (Auto) 0.3 Absolute Neuts (auto) 7.5 Absolute Lymphs (auto) 0.86 Nucleated RBC % 0 Sodium 143 Potassium 3.5 Chloride 109 H Carbon Dioxide 28.0 Anion Gap 6 BUN 14 Creatinine 0.79 Estim Creat Clear Calc 67.93 Est GFR (MDRD) Af Amer 123 Est GFR (MDRD) Non-Af 102 BUN/Creatinine Ratio 17.7 Glucose 135 H Calcium 8.3 L - Medical Decision Making Patient was given morphine and Zofran for pain control. Test results are reviewed. Blood work is unremarkable however patient does have evidence of a left inguinal hernia that extends into the scrotum. I attempted to contact the patient's surgeon, Dr. Mercado at the [facility]. He was paged but with no return call in 1 hour I spoke with our local surgeon here. She reviewed the images and does feel it is safe for the patient to follow-up closely as an outpatient. Patient will contact the [facility] tomorrow for close follow-up. Patient is welcome to follow-up with Dr. Hilton here locally if he wishes and her information was provided as well. ED Disposition - Plan for ED Patient: Disposition: Home or Assisted Living Diagnosis: Inguinal hernia Instructions: ED Hernia (Adult) Referrals: Courtney Hilton MD [STAFF PHYSICIAN] - Additional Instructions: Follow-up with your surgeon or Dr. Hilton as soon as possible.
[2020-11-25] MEDS: Ondansetron 4 MG/2 ML Vial IV (16:21)
[2020-11-25] MEDS: Morphine 4 MG/ML Syringe IV (16:21)
[2020-11-25 16:23] LABS: Absolute Lymphocyte Count 0.86 X10^3/uL (0.83-4.51); Absolute Neutrophil Count 7.5 X10^3/uL (2.0-7.7); Basophil# 0.03 X10^3/uL; Basophil% 0.3 % (0-1); Eosinophil# 0.14 X10^3/uL; Eosinophils% 1.5 % (0-5); Hematocrit 33.8 % (40-54); Hemoglobin 11.1 g/dL (13.0-16.5); Lymphocyte # 0.86 X10^3/ul (4.0); Lymphocyte % 9.4 % (19-41); Mean Corp Hgb Conc 32.8 g/dL (32-36); Mean Corpuscular Hgb 31.1 pg (27.0-32.0); Mean Corpuscular Volume 94.7 fL (80-94); Mean Platelet Vol. 10.6 fl (6.2-12.0); Monocyte# 0.57 X10^3/uL; Monocyte% 6.2 % (0-10); NRBC Flagged by Analyzer 0 % (0-5); Neutrophil # 7.48 X10^3/uL (2.7-7.7); Neutrophil % 81.7 % (47-70); Platelet Count 240 K/mm3 (150-450); RBC Distribution Width CV 14.6 % (11.6-14.6); RBC Distribution Width SD 50.7 fl (35.1-43.9); Red Blood Count 3.57 M/mm3 (4.6-6.2); White Blood Count 9.2 K/mm3 (4.4-11.0)
[2020-11-25 16:52] LABS: Anion Gap 6 (5-15); BUN 14 mg/dL (7-18); BUN/Creat Ratio 17.7 RATIO (10-20); Calcium,Total 8.3 mg/dL (8.5-10.1); Chloride 109 mmol/L (98-107); Creatinine, Serum 0.79 mg/dL (0.70-1.30); EST Glomerular Filtration Rate 102 mL/min (>60); Est Glom Filt Rate - Afr Amer 123 mL/min (>60); Estimated Creatinine Clearance 67.93 ml/min; Glucose 135 mg/dL (74-106); Potassium 3.5 mmol/L (3.5-5.1); Sodium Level 143 mmol/L (136-145)
--- NOTE | 2020-11-25 17:40 | ED.RN ---
DR MERCEDES PAGED [phone]
--- NOTE | 2020-11-25 18:18 | ED.RN ---
DR MERCEDES PAGED [phone]
== END 2020-11-25 19:07 | disposition home or self-care (01) ==
PROVIDERS: Emergency Provider Emergency Medicine
DX: K40.90 Unilateral inguinal hernia, without obstruction or gangrene, not specified as recurrent (principal); Z98.890 Other specified postprocedural states
CPT/HCPCS: 72193; 80048; 85025; 96374; 96375; 99283; Q9967; A4216; J2405

== ENCOUNTER → 2020-12-10 16:40 | Outpatient (CLI) | payer MEDICARE, SELFPAY ==
[2020-12-10 17:49] LABS: Hematocrit 36.9 % (40-54); Mean Corp Hgb Conc 32.5 g/dL (32-36); Mean Corpuscular Hgb 30.5 pg (27.0-32.0); Mean Corpuscular Volume 93.7 fL (80-94); Platelet Count 331 K/mm3 (150-450); RBC Distribution Width CV 14.6 % (11.6-14.6); RBC Distribution Width SD 50.3 fl (35.1-43.9); Red Blood Count 3.94 M/mm3 (4.6-6.2); White Blood Count 7.2 K/mm3 (4.4-11.0)
[2020-12-10 18:08] LABS: Iron 85 ug/dL (65-175)
== END ==
PROVIDERS: Referring Provider Internal Medicine Gastroenterology; Visit Provider Internal Medicine Gastroenterology
DX: K25.9 Gastric ulcer, unspecified as acute or chronic, without hemorrhage or perforation (principal)
CPT/HCPCS: 36415; 83540; 85027

== ENCOUNTER → 2020-12-11 14:09 | Outpatient (CLI) | payer MEDICARE, SELFPAY ==
[2020-11-25 15:47] VITALS: BMI 37.2
== END ==
PROVIDERS: Referring Provider Internal Medicine Gastroenterology; Visit Provider Internal Medicine Gastroenterology
DX: Z11.52 Encounter for screening for COVID-19 (principal)
CPT/HCPCS: 87635; C9803; U0002

== ENCOUNTER 2022-03-03 17:58 | Emergency (ER) | payer OTHER, SELFPAY ==
[2022-03-03 17:58] VITALS: BP 172/79; PULSE 64; RESP 16; TEMP 36.4; O2SAT 100; BMI 32.3
--- NOTE | 2022-03-03 18:28 | ED.VIS.BACK ---
HPI History of Present Illness Chief Complaint: Back Narrative Narrative: 76-year-old male presenting with right lumbar back pain. He states that started this morning. He had a history of this before and has degenerative disc disease. He states that he usually takes an anti-inflammatory but cannot name the medicine he takes. He states it starts with the letter A. He states he supposed to take couple of these when it flares. I asked if it was Aleve and he was not sure. I asked if it was Advil and he was not sure. He states he knows that it was not aspirin. He states that yesterday he mowed the grass and today he woke up with pain. He does not have any loss of bladder or bowel control. No saddle anesthesia. Patient ambulatory. He describes some radiation to the right gluteal region. [facility] Medical History (Updated 11/28/20 @ 12:34 by Kira Lamb) Bladder cancer DJD (degenerative joint disease) History of MRSA infection Osteoarthritis Home Medications aspirin 81 mg tablet,delayed release 81 mg PO DAILY 02/29/20 [History Last Taken Unknown] acetaminophen 500 mg tablet 1,000 mg PO Q6H #100 tabs 03/28/20 [Rx Last Taken Unknown] cyclobenzaprine 10 mg tablet 10 mg PO BID PRN muscle spasm #10 tabs 03/03/22 [Rx Last Taken Unknown] Allergy/AdvReac Type Severity Reaction Status Date / Time No Known Allergies Allergy Verified 11/25/20 15:50 Surgical History (Updated 11/28/20 @ 12:34 by Kira Lamb) History of left inguinal hernia repair (~11/2020) History of total left hip arthroplasty Social History (Updated 11/28/20 @ 13:[address] Hiro Blackman MD) Smoking Status: Never smoker ROS ROS ED Constitutional Constitutional ED: Denies chills, fever(s) or sweats Eyes Eyes: Denies blurry vision or change in vision ENT ENT ED: Denies ear pain, rhinorrhea or sore throat Cardiovascular Cardiovascular: Denies chest pain, palpitations or racing heartbeat Respiratory/Chest Respiratory/Chest: Denies cough, dyspnea or sputum Gastrointestinal Gastrointestinal: Denies abdominal pain, constipation, diarrhea or vomiting Genitourinary Genitourinary ED: Denies dysuria, hematuria or urinary frequency Musculoskeletal Musculoskeletal: Reports back pain; Denies arthralgias, myalgias or neck pain Integumentary Denies abscess, Abrasions or rash Neurologic Neurologic: Denies headache(s), paresthesias or weakness Psychiatric Psychiatric: Denies anxiety, depression, suicidal ideation or suicidal thoughts Endocrine Endocrinology: Denies polydipsia or polyuria EXAM Physical Exam Const Vital Signs: 03/03/22 17:58 Temperature 97.6 F L Temperature Source Temporal Pulse Rate 64 Respiratory Rate 16 Blood Pressure 172/79 H Blood Pressure Mean 110 Pulse Ox 100 Oxygen Delivery Method Room Air Positive well nourished General Appearance ED: NAD; Negative for pallor HEENT Reports moist mucous membranes Eyes PERRL and EOMs intact bilaterally Resp normal respiratory effort and clear to auscultation bilaterally Cardio regular rate and regular rhythm GI normal to inspection, nondistended, normoactive bowel sounds Back/Spine Lumbar Spine / Lower Back: paraspinal muscle tenderness right; Negative for mass present Pelvis: buttocks abnormal right Neuro oriented x3 and no sensory deficits noted Sensorium / Orientation: alert Motor Exam: strength 5/5 throughout Psych mental status grossly normal Skin no rashes or lesions noted General Skin Exam: Negative for jaundice or pallor MDM MDM MDM Narrative Medical decision making narrative: 76-year-old male presenting with right lumbar paraspinal musculature pain. No midline spinal deformity or step-off. No red flag signs or symptoms. X-ray of the lumbar spine on my interpretation is no acute findings. Radiologist agree. Patient treated with Norflex and Toradol and feels improved. He is counseled to use ice, heat, stretching exercises. He will be prescribed short prescription of cyclobenzaprine. He has anti-inflammatories at home. Given return precautions. Impression: 1. Lumbar strain Lab Data Attestation: I reviewed the patient's lab results. Radiography Diagnostic Testing: Clinical Impression(s) from Imaging Studies Lumbar Spine X-Ray 03/03/22 18:40 IMPRESSION: There are no acute findings. Electronically Signed: Jong Brink MD at 19:11 EDT Reading Location ID and State: [facility] [place] [facility]– [place] / [place] , Service support , Discharge Plan Triage Chief Complaint: Back ED Provider: Lambert Elmore Dx/Rx/DC Orders Instructions: ED Back Spasm, No Trauma Prescriptions: New cyclobenzaprine 10 mg tablet 10 mg PO BID PRN (Reason: muscle spasm) Qty: 10 0RF No Action aspirin 81 mg tablet,delayed release (DR/EC) 81 mg PO DAILY acetaminophen 500 MG tablet 1,000 mg PO Q6H Qty: 100 0RF [facility]errals: [facility] [Primary Care Provider] - Disposition Disposition: Home, Self Care
[2022-03-03] MEDS: Ketorolac 15 MG/ML Vial IM (18:35)
[2022-03-03] MEDS: Orphenadrine 60 MG/2 ML Ampul IM (18:39)
--- NOTE | 2022-03-03 18:40 | RAD_ITS ---
STUDY: X-RAY - LUMBAR SPINE REASON FOR EXAM: Male, 76 years old. back pain TECHNIQUE: XR Spine Lumbar 2 or 3 Views COMPARISON: 2.5.20 FINDINGS: Normal lumbar lordosis. There is a dextroscoliosis of the lumbar spine. There is a normal alignment of the vertebrae. There is metallic hardware noted in the left hip. There is multilevel endplate spondylosis of the lumbar vertebrae. There is multi-level degenerative disc disease with multi-level disc space narrowing. There is atherosclerotic calcification of the abdominal aorta without a demonstrated aneurysm. RAD/Lumbar Spine 2 or 3 Views IMPRESSION: There are no acute findings. Electronically Signed: Jong Brink MD at 19:11 EDT ,
[2022-03-03 19:29] VITALS: BP 157/82; PULSE 63; RESP 18; O2SAT 96
== END 2022-03-03 19:34 | disposition home or self-care (01) ==
PROVIDERS: Emergency Provider Student in an Organized Health Care Education/Training Program; Visit Provider Student in an Organized Health Care Education/Training Program
DX: S39.012A Strain of muscle, fascia and tendon of lower back, initial encounter (principal); X58.XXXA Exposure to other specified factors, initial encounter
CPT/HCPCS: 72100; 96372; 99282

== ENCOUNTER → 2023-09-01 | Outpatient (CLI) | payer OTHER, SELFPAY ==
--- NOTE | 2023-09-01 09:40 | RAD_ITS ---
STUDY: X-RAY CHEST REASON FOR EXAM: Male, 78 years old. LUNG CONDITION TECHNIQUE: Frontal and lateral views of the chest. COMPARISON: None. FINDINGS: There is hyperinflation of the lungs consistent with chronic obstructive lung disease (COPD). No infiltrates or effusions. There is no demonstrated pleural abnormality. Normal size heart. Normal mediastinum and winifred. Normal visualized pulmonary arteries. Normal visualized aortic arch and descending thoracic aorta. There are diffuse degenerative changes of the visualized thoracic spine. Normal visualized ribs, clavicles, and shoulders. There is no demonstrated abnormality of the visualized soft tissue structures of the upper abdomen. RAD/Chest PA and Lateral IMPRESSION: There are findings consistent with COPD. There is no evidence of acute chest disease. Electronically Signed: True De Leon MD at 17:53 EST ,
--- NOTE | 2023-09-01 12:41 | PFT ---
INTRODUCTION: The patient is a 78-year-old male who presents for pulmonary function studies secondary to a diagnosis of lung condition. Respiratory therapy reported good patient effort. Bronchodilators were used during testing. INTERPRETATION: Forced expiration spirometry demonstrates no evidence of a large airways obstructive ventilatory defect. There was no significant response to aerosolized bronchodilators. Spirograms are of good quality and plateau normally. The respiratory flow-volume loop is normal. Body plethysmography was performed and revealed lung volumes to be within normal limits. Diffusing capacity by single breath CO is also within normal limits. IMPRESSION: Grossly normal pulmonary function studies.
== END | disposition home or self-care (01) ==
LOC: PSN 09:36
PROVIDERS: Referring Provider Chiropractor; Visit Provider Chiropractor
DX: J98.9 Respiratory disorder, unspecified (principal)
CPT/HCPCS: 71046; 94060; 94726; 94729